=== PATIENT | male | born 1940 | race Caucasian/White ===

== ENCOUNTER → 2016-03-27 11:19 | Outpatient (CLI) | payer MEDICARE, OTHER ==
[2015-12-03 10:43] VITALS: BMI 27.4
[~2016-03-27 11:19] MED LIST: ASPIRIN325 MG PO; ATIVAN0.5 MG PO; BAYER CHEWABLE81 MG PO; BUMETANIDE0.5 MG PO; CLARITIN 10 MG10 MG PO; FISH OIL 500 MG1 CAP PO; FLOMAX0.4 MG PO; LOPRESSOR50 MG PO; NEURONTIN 100100 MG PO; NITROSTAT0.4 MG; PLAVIX75 MG PO; PRILOSEC20 MG PO; VITAMIN PO
== END | disposition home or self-care (01) ==
LOC: D.US 11:19
DX: I65.23 Occlusion and stenosis of bilateral carotid arteries (principal)

== ENCOUNTER 2016-07-19 18:12 | Observation (INO) | payer MEDICARE, OTHER ==
[~2016-07-19] VITALS: Ht 182.9 cm; Wt 91.8 kg
--- NOTE | ~2016-07-19 | OP ---
PATIENT NAME: MARA WEAVER MEDICAL RECORD: [id number] :38 LOCATION:[facility] ADMISSION DATE:07/19/16 SURGEON: SARITA LAW M.D. DATE OF OPERATION: 07/20/2016 PROCEDURES PERFORMED: 1. Selective coronary angiography. 2. Left heart catheterization with ventriculogram. 3. Bypass angiography. 4. Left internal mammary injection. INDICATION: A 76-year-old gentleman status post stent in the right coronary presents with recurrent angina. EQUIPMENT USED: Diagnostic 5-Brazilian JL4, AR modified catheter, mammary catheter, pigtail catheter. TECHNIQUE: A 5-Brazilian sheath was inserted in retrograde fashion in the right common femoral artery. Next, selective coronary angiography was performed in standard views 5-Brazilian JL4 and ____ right. Left heart catheterization was performed using pigtail catheter. Bypass angiography was performed using the AR1 catheter. The internal mammary was selected with internal mammary catheter. CORONARY ANATOMY: 1. Left main: Left main trunk has an ostial 70% stenosis. 2. LAD: This vessel is 100% occluded in mid segment. There is competitive flow seen in the mid segment from the mammary artery. 3. Circumflex: This vessel is moderate in caliber. The first lateral branch has competitive flow to ____ as well. 4. Right coronary: This vessel is moderate in caliber and dominant. The proximal mid vessel has been stented. The stents are widely patent. There is no evidence of restenosis. 5. Saphenous vein graft to the circumflex: This graft is widely patent throughout its course. 6. Left internal mammary artery to LAD: This graft is widely patent throughout its course. 7. Left ventricle: Left ventricle is normal in size and function. No wall motion abnormalities are seen. Ejection fraction is 50%. IMPRESSION: 1. Severe viejas coronary artery disease. 2. Patent bypass grafts to the left anterior descending and circumflex. 3. Widely patent stents in the right coronary artery without evidence of restenosis. RECOMMENDATIONS: At this point, we will continue with medical management. I suspect his pain is noncardiac in origin. TRANSINT:[id number] Voice Confirmation ID: [id number] DOCUMENT ID: [id number] OPERATIVE REPORT [id number] MARA WEAVER SARITA LAW M.D. CC: [id number] DICTATION DATE: 07/20/16 1141 OPTICIAN MANAGER: 07/20/16 2151 DIS IN 07/20/16 [facility] [address] [place] [address]
--- NOTE | ~2016-07-19 | HEMODYNAMI ---
PATIENT:MARA WEAVER MEDICAL RECORD: [id number] : 36 LOCATION:[facility] ADMISSION DATE: 07/19/16 Generatedon:07/20/201611:39 Patient name: MARA WEAVER Patient #: [id number] : 1940 Date of study: 07/20/2016 Page: Of Hemodynamic Procedure Report Patient Data Patient Demographics Procedure consent was obtained First Name: MARA Gender: Male Last Name: MEG : 1940 Middle Initial: L Age: 76 year(s) Patient #: [id number] Race: Ethnicity: or SSN: [id number] Additional ID: [id number] Contact details Address: [address] State: [place] City: [place] Zip code: [address] Past Medical History Allergies Allergen Reaction Date Comments Reported Other allergy 12/03/2015 Statins, valium Other allergy 07/20/2016 rosuvastatin calcium, statins, valium, lipitor, simvastatin Admission Admission Data Admission Date: 07/19/2016 Admission Time: 21:46 Room #: [id number] Lab Results Lab Result Date: 07/19/2016 Lab Result Time: 0:00 Biochemistry Name Units Result Min Max BUN mg/dl 17 --(---*)-- 7 18 Creatinine mg/dl 1.1 --(--*-)-- 0.6 1.3 CBC Name Units Result Min Max Hemoglobin g/dl 14.3 --(*---)-- 13.5 17.5 Procedure Procedure Types Cath Procedure Diagnostic Procedure LHC LHC w/Coronaries w/Grafts Miscellaneous Procedures Moderate Sedation up to 15 minutes Procedure Description Procedure Date Procedure Date: 07/20/2016 Procedure Start Time: 11:13 Procedure End Time: 11:37 Procedure Staff Name Function Boston Watkins MD Performing Physician Shy Conroy RT Scrub Maurizio Ernandez RN Nurse Taryn Hernandez RT Monitor Procedure Data Cath Procedure Fluoroscopy Diagnostic fluoroscopy Total fluoroscopy Time: 5.4 time: 5.4 min min Diagnostic fluoroscopy Total fluoroscopy dose: 886 dose: 886 mGy mGy Contrast Material Contrast Material Type Amount (ml) Isovue 300 98 Entry Location Entry Primary Successful Side Size Upsize Upsize Entry Closure Succes sful Closure Location (Fr) 1 (Fr) 2 (Fr) Remarks Device Remarks Femoral Right 5 Fr Exoseal artery Estimated blood loss: 10 ml Diagnostic catheters Device Type Used For End Catheter Placement Cordis 5Fr JL 4.0 Procedure Catheter (MP) Diagnostic Infinity 5Fr Procedure AR 2 MOD catheter Diagnostic Infinity 5Fr Procedure IM catheter Cordis 5Fr Pigtail LV Angiography Catheter (MP) Procedure Complications No complications Procedure Medications Medication Administration Route Dosage Oxygen NC 2 l/min Lidocaine 2% added to field 20 Heparin Flush Bag added to field 2 bags (1000units/500ml NS) 0.9% NaCl I.V. 100 ml/hr Fentanyl I.V. 50 mcg Fentanyl I.V. 50 mcg Fentanyl I.V. 50 mcg Fentanyl I.V. 50 mcg Hemodynamics Rest HGB: 14.3 (g/dl) Heart Rate: 90 (bpm) Pressure Samples Time Site Value (mmHg) Purpose Heart Use Rate(bpm) 11:33 LV 158/-5,21 Snapshot 90 11:33 LV 160/-6,21 Snapshot 90 11:34 AO 158/78(112) Pullback 93 11:34 LV 165/-2,22 Pullback 93 Gradients Valve Time Site 1 Site 2 Mean SEP/DFP Peak To Heart Use (mmHg) (sec/min) Peak Rate (mmHg) (bpm) Aortic 11:34 LV AO 20 10 7 93 165/-2,22 158/78(112) Calculations Valve P-P Mean Valve Index Valve Source Name Gradient Area Flow (cm2) Aortic 7 20 7 20 Snapshots Pre Cath Intra NCS Post Cath Vital Signs Time Heart Resp SPO2 NIBP (mmHg) Rhythm Pain Sedation Rate (ipm) (%) Status Level (bpm) 10:58:21 88 16 99 164/88(125) NSR 0 (11) 10(A) , No pain 11:02:46 88 18 98 160/87(115) NSR 0 (11) 10(A) , No pain 11:07:08 81 17 99 155/75(119) NSR 0 (11) 10(A) , No pain 11:11:24 86 16 97 140/77(107) NSR 0 (11) 10(A) , No pain 11:15:42 85 14 98 147/78(113) NSR 0 (11) 10(A) , No pain 11:19:56 89 17 96 134/82(103) NSR 0 (11) 10(A) , No pain 11:24:12 90 15 99 135/77(107) NSR 0 (11) 10(A) , No pain 11:28:28 89 15 99 139/78(115) NSR 0 (11) 10(A) , No pain 11:32:42 92 16 99 144/77(104) NSR 0 (11) 10(A) , No pain 11:37:00 92 15 99 138/76(95) NSR 0 (11) 10(A) , No pain Medications Time Medication Route Dose Verified Delivered Reason Notes Effe ctiveness by by 11:05:42 Oxygen NC 2 Boston Buffie used for l/min Roland Ernandez RN procedure 11:05:49 Lidocaine 2% added 20ml Boston Boston for local to vial Roland Watkins MD anesthetic field 11:05:55 Heparin Flush added 2 Boston Botson used for Bag to bags Roland Watkins MD procedure (1000units/500ml field NS) 11:06:04 0.9% NaCl I.V. 100 Boston Buffie Per ml/hr Roland Ernandez RN physician 11:12:35 Fentanyl I.V. 50 Boston Buffie for oniel Ernandez RN sedation 11:15:36 Fentanyl I.V. 50 Boston Buffie for oniel Ernandez RN sedation 11:18:36 Fentanyl I.V. 50 Boston Buffie for oniel Ernandez RN sedation 11:23:30 Fentanyl I.V. 50 Boston Buffie for oniel Ernandez RN sedation Procedure Log Time Note 10:38:02 Informed consent obtained and on chart 10:38:16 Diagnostic Cath Status : Elective 10:39:08 Maurizio Ernandez RN sent for patient. Start room use. 10:39:09 Time tracking: Regular hours 10:39:13 Plan of Care:Hemodynamics will remain stable., Cardiac rhythm will remain stable., Comfort level will be maintained., Respiratory function will remain adequate., Patient/ family verbilizes understanding of procedure., Procedure tolerated without complication., Recovers from procedure without complications.. 10:50:26 Patient received from Med/Surg to CCL 2 Alert and oriented. Tansferred to table in Supine position. 10:50:27 Warm blankets applied, and georgiana hugger turned on for patient comfort. 10:50:27 Correct patient and procedure confirmed by team. 10:50:28 ECG and BP/O2 sat monitors applied to patient. 10:57:08 Vital chart was started 10:57:31 H&P Date Dictated: 07/20/2016 Within 30 days and on chart.. 10:57:37 Pre-procedure instructions explained to patient. 10:57:40 Family in patients room. 10:57:42 Patient NPO since Midnight. 10:58:30 Patient allergic to Other allergyrosuvastatin calcium, statins, valium, lipitor, simvastatin 10:58:33 Is the patient allergic to Iodine/contrast media? No. 10:58:36 Is patient on blood thinner?Yes 10:58:39 ACC The patient was administered the following blood thiners within the last 24 hours: ACCAspirin 10:58:41 Patient diabetic? No. 10:58:46 Snore? Yes 10:58:49 Sleep apnea? No 10:58:51 Deviated septum? No 10:58:52 Opens mouth fully? Yes 10:58:54 Sticks out tongue? Yes 10:59:08 Dentures? Yes in tight 10:59:17 Patient pain scale 0/10 ?. 10:59:24 IV patent on arrival in left hand with 0.9% NaCl at O. 11:01:00 Lab Result : BUN 17 mg/dl 11:01:00 Lab Result : Hemoglobin 14.3 g/dl 11:01:00 Lab Result : Creatinine 1.1 mg/dl 11:01:05 Lab results completed and on chart. 11:01:11 Right groin area was prepped with chlora-prep and draped in sterile fashion 11:01:13 Sharps counted by scrub and verified by R.N. 11:01:14 Physician paged 11:05:42 Oxygen 2 l/min NC was administered by Maurizio Ernandez RN; used for procedure; 11:05:49 Lidocaine 2% 20ml vial added to field was administered by Boston Watkins MD; for local anesthetic; 11::55 Heparin Flush Bag (1000units/500ml NS) 2 bags added to field was administered by Bostno Watkins MD; used for procedure; 11:06:04 0.9% NaCl 100 ml/hr I.V. was administered by Maurizio Ernandez RN; Per physician; 11::55 Physician arrived 11::55 --------ALL STOP TIME OUT------ 11:11:56 Final Timeout: patient, procedure, and site verified with staff and physician. All members of the team are in agreement. 11:11:59 Right groin site verified by team. 11:12:04 Sedation plan: IV Moderate Sedation Versed, Fentanyl 11:12:35 Fentanyl 50 mcg I.V. was administered by Maurizio Ernandez RN; for sedation; 11:13:45 Physical assessment completed. ASA score P 2 - A patient with mild systemic disease as per Boston Watkins MD. 11:13:50 Procedure started. 11:13:50 Full Disclosure recording started 11:13:53 Local anesthetic to right femoral artery with Lidocaine 2% by Boston Watkins MD.INITIAL ACCESS ONLY 11:14:00 Use device set Femoral Dx 11:14:01 Acist Syringe opened to sterile field. 11:14:02 Bag Decanter opened to sterile field. 11:14:03 Medline Cath Pack opened to sterile field. 11:14:03 Terumo 5Fr Callao Sheath opened to sterile field. 11:14:04 St Alcides 260cm J .035 wire opened to sterile field. 11:14:05 Acist Hand Control opened to sterile field. 11:14:06 Acist Manifold opened to sterile field. 11:14:06 Diagnostic Infinity 5Fr Multipack catheter opened to sterile field. 11:14:07 Tegaderm 4 x 4 opened to sterile field. 11:14:13 Procedure type changed to Cath procedure, Diagnostic procedure, LHC, LHC w/Coronaries w/Grafts, Miscellaneous Procedures, Moderate Sedation up to 15 minutes 11:14:25 A 5 Fr sheath was inserted into the Right Femoral artery 11:14:28 Zero performed for pressure channel P1 11:15:36 Fentanyl 50 mcg I.V. was administered by Buffie Ernandez RN; for sedation; 11:18:36 Fentanyl 50 mcg I.V. was administered by Maurizio Ernandez RN; for sedation; 11:23:28 A Cordis 5Fr JL 4.0 Catheter (MP) was advanced over the wire and used for Procedure. 11:23:30 Fentanyl 50 mcg I.V. was administered by Maurizio Ernandez RN; for sedation; 11:23:36 LCA angiography performed. 11:26:11 Catheter removed. 11:27:29 A Diagnostic Infinity 5Fr AR 2 MOD catheter was advanced over the wire and used for Procedure. 11:27:54 SVG to Circ angiography performed. 11:28:14 SVG to RCA occluded. 11:28:23 RCA angiography performed. 11:30:04 A Diagnostic Infinity 5Fr IM catheter was advanced over the wire and used for Procedure. 11:30:08 FRANCO to LAD angiography performed. 11:33:07 A Cordis 5Fr Pigtail Catheter (MP) was advanced over the wire and used for LV Angiography. 11:33:47 EF : 50 % 11:34:04 Catheter removed. 11:34:11 Cordis 5Fr Exoseal opened to sterile field. 11:34:28 Sheath removed intact; hemostasis achieved with Exoseal to the Right Femoral artery. 11:35:00 Procedure ended.(Physican Out) 11:35:18 Fluoroscopy time 05.40 minutes. 11:35:25 Fluoroscopy dose: 886 mGy 11:35:25 Flurop Dose total: 886 11:35:33 Contrast amount:Isovue 300 98ml. 11:35:34 Sharps counted by scrub and verified by R.N. 11:35:59 Insertion/operative site no bleeding no hematoma. 11:36:03 Post-op/insertion site Right Femoral artery dressed using a 4 x 4 and Tegaderm. 11:36:13 Post right femoral artery:stable 11:36:14 Post Procedure Pulses reassessed and unchanged 11:36:18 Post-procedure physical assessment completed. ASA score P 2 - A patient with mild systemic disease as per Boston Watkins MD. 11:36:21 Post procedure rhythm: unchanged. 11:36:23 Estimated blood loss: 10 ml 11:36:24 Post procedure instruction explained to patient.Patient verbalizes understanding. 11:36:37 Procedure and supply charges have been captured, reviewed, submitted and are correct. 11:36:59 Procedure Complication : No complications 11:37:05 Vital chart was stopped 11:37:06 See physician's report for complete and final results. 11:37:08 Report given to Pre/Post Procedure Room. 11:37:12 Patient transfered to Pre/Post Procedure Room with Bed. 11:37:14 Procedure ended. 11:37:14 Full Disclosure recording stopped 11:37:17 End room use (Document Last) Device Usage Item Name Manufacture Quantity Catalog Hospital Part Current Minimal Lo t# / Number Charge Number Stock Stock Serial# Code Acist Acist 1 [id number] [id number] 577485 267711 20 Syringe [employer] Inc Bag Microtek 1 2002S 105392 64827 865504 5 Decanter Medical Inc. Medline Cardinal 1 [id number] 877582 04106 555328 5 Cath Pack Health Terumo 5Fr Terumo 1 [id number] 745431 699587 405891 [address] Al[facility] St Alcides 1 593746 406455 856505 856715 30 260cm J .035 wire Acist Hand Acist 1 60222 425864 126325 610309 5 Control Medical Systems Inc Acist Acist 1 31152 981702 903854 849662 5 Manifold Medical Systems Inc Diagnostic Cardinal 1 [id number] 661227 03074 885253 30 Infinity Health 5Fr Multipack catheter Tegaderm 4 3M 1 1626W 068940 136505 155824 5 x 4 Cordis 5Fr Cardinal 1 292478 5 JL 4.0 Health Catheter (MP) Diagnostic Cardinal 1 [id number] 388219 616156 291258 20 Infinity Health 5Fr AR 2 MOD catheter Diagnostic Cardinal 1 [id number] 237921 684267 606396 5 Infinity Health 5Fr IM catheter Cordis 5Fr Cardinal 1 501608 5 Pigtail Health Catheter (MP) Cordis 5Fr Cardinal 1 EX500 586784 219938 735419 10 European Batteries Signature Audit [place] Stage Time Signature Unsigned Intra-Procedure 07/20/2016 Taryn Hernandez 11:39:30 AM RT(R) Signatures Monitor : Taryn Hernandez Signature : RT Date : Time : [place] [address] [place] [address]
[2016-07-19 19:06] LABS: BASOPHILS 0.4 % (0-2); EOSINOPHILS 2.1 % (0-7); HEMATOCRIT 41.3 % (42.0-54.0); HEMOGLOBIN 14.3 g/dL (13.5-17.5); IMMATURE GRANULOCYTES 0.2 % (0-5); LYMPHOCYTES 35.4 % (15-50); MCH 33.1 pg (26.0-34.0); MCHC 34.6 g/dL (31.0-37.0); MCV 95.6 fL (80.0-100.0); MEAN PLATELET VOLUME 9.6 fL (7.4-10.4); NEUTROPHILS 51.9 % (40-80); PLATELET COUNT 143 10x3/uL (130-400); RBC 4.32 10x6/uL (4.20-6.10); RDW 12.6 % (11.5-14.5); WBC 5.6 10x3/uL (4.8-10.8)
[2016-07-19 19:28] LABS: ALKALINE PHOSPHATASE 72 U/L (46-116); ALT (SGPT) 23 U/L (10-68); BILIRUBIN - TOTAL 0.45 mg/dL (0.2-1.3); CALC OSMOLALITY 280 mosm/kg (275-300); CALCIUM 9.1 mg/dL (8.5-10.1); CARBON DIOXIDE 29.1 mmol/L (21.0-32.0); CHLORIDE - SERUM 103 mmol/L (98-107); CREATININE - SERUM 1.1 mg/dL (0.6-1.3); GLUCOSE 104 mg/dL (74-106); POTASSIUM - SERUM 3.6 mmol/L (3.5-5.1); PROTEIN - SERUM 7.9 g/dL (6.4-8.2); SODIUM 140 mmol/L (136-145); UREA NITROGEN 17 mg/dL (7-18); eGFR NON AFRICAN AMERICAN 69 mL/min (90-120)
[2016-07-19 19:39] LABS: CHOL - HDL RATIO 5.9 ratio (2.3-4.9); CHOLESTEROL, TOTAL 208 mg/dL (0-200); CKMB 0.7 U/L (0.0-3.6); CREATINE KINASE 74 UL (21-232); HDL CHOLESTEROL 35 mg/dL (32-96); LDL CHOLESTEROL 135 mg/dL (0-100); LDL-HDL RATIO 3.9 ratio (1.5-3.5); TRIGLYCERIDE 193 mg/dL (30-200); TROPONIN-I < 0.017 ng/mL (0.000-0.060)
--- NOTE | 2016-07-19 23:12 | NUR ---
CALLED TO RESERVE TELE MONITOR
[2016-07-20 00:45] VITALS: BP 115/58; Ht 182.9 cm; Wt 91.8 kg
[2016-07-20] MEDS ORDERED: ZANTAC150 MG PO (00:56)
[2016-07-20] MEDS ORDERED: TYLENOL PM1 TAB PO (00:57)
[2016-07-20] MEDS ORDERED: ARICEPT5 MG PO (00:58)
[2016-07-20] MEDS ORDERED: SEROQUEL50 MG PO (01:00)
[2016-07-20 01:47] LABS: CREATINE KINASE 62 UL (21-232)
[2016-07-20 01:51] LABS: TROPONIN-I < 0.017 ng/mL (0.000-0.060)
[2016-07-20 04:00] VITALS: BP 139/70
--- NOTE | 2016-07-20 07:40 | NUR ---
PT AOX4 RESP EVEN AND NONLABORED PT DENIES NEEDS AT THIS TIME IV TO LEFT AC PATENT AND INTACT AT THIS TIME SRX2 BED AT LOWEST SETTING CALL LIGHT WITHIN REACH WILL CONTINUE TO MONITOR
[2016-07-20 07:49] LABS: CKMB 0.5 U/L (0.0-3.6); CREATINE KINASE 65 UL (21-232)
[2016-07-20 07:54] LABS: TROPONIN-I < 0.017 ng/mL (0.000-0.060)
[2016-07-20 08:08] VITALS: BP 110/68
[2016-07-20 08:54] LABS: CALC OSMOLALITY 278 mosm/kg (275-300); CALCIUM 8.8 mg/dL (8.5-10.1); CARBON DIOXIDE 24.1 mmol/L (21.0-32.0); CHLORIDE - SERUM 104 mmol/L (98-107); GLUCOSE 103 mg/dL (74-106); POTASSIUM - SERUM 4.2 mmol/L (3.5-5.1); SODIUM 139 mmol/L (136-145); UREA NITROGEN 16 mg/dL (7-18); eGFR NON AFRICAN AMERICAN 77 mL/min (90-120)
[2016-07-20 09:31] LABS: BASOPHILS 0.4 % (0-2); EOSINOPHILS 1.3 % (0-7); HEMATOCRIT 41.1 % (42.0-54.0); IMMATURE GRANULOCYTES 0.2 % (0-5); LYMPHOCYTES 21.3 % (15-50); MCH 32.8 pg (26.0-34.0); MCHC 34.1 g/dL (31.0-37.0); MCV 96.3 fL (80.0-100.0); MEAN PLATELET VOLUME 10.3 fL (7.4-10.4); NEUTROPHILS 68.8 % (40-80); PLATELET COUNT 134 10x3/uL (130-400); RBC 4.27 10x6/uL (4.20-6.10); RDW 12.5 % (11.5-14.5); WBC 5.3 10x3/uL (4.8-10.8)
--- NOTE | 2016-07-20 12:00 | NUR ---
RIGHT GROIN CDI, NO HEMATOMA OR BLEEDING NOTED AT SITE, SOFT TO TOUCH, AT SIDE.
--- NOTE | 2016-07-20 12:30 | NUR ---
NO CHANGES IN GROIN, FAMILY AT SIDE
--- NOTE | 2016-07-20 14:20 | NUR ---
IV D'C WITH CATH TIP INTACT, RIGHT GROIN CDI, NO HEMATOMA OR BLEEDING NOTED, SOFT TO TOUCH. WRITTEN AND VERBAL INSTRUCTIONS GIVEN TO PT AND . VERBAL UNDERSTANDING NOTED. D'C HOME WITH
== END 2016-07-20 14:20 | disposition home or self-care (01) ==
LOC: D.ER 18:12 → D.MS 21:46 → OBSVTIME 21:46 → D.CLR 07-20 13:17
PROVIDERS: Emergency Medicine; ADMIT Internal Medicine Cardiovascular Disease
DX: R07.89 Other chest pain (principal); I25.10 Atherosclerotic heart disease of native coronary artery without angina pectoris; Z95.5 Presence of coronary angioplasty implant and graft; I10 Essential (primary) hypertension; E78.5 Hyperlipidemia, unspecified; Z87.891 Personal history of nicotine dependence

== ENCOUNTER → 2016-10-13 11:29 | Outpatient (CLI) | payer MEDICARE, OTHER ==
[2016-07-20 00:45] VITALS: BMI 27.4
[~2016-10-13 11:29] MED LIST changes: +ARICEPT5 MG PO; +SEROQUEL50 MG PO; +TYLENOL PM1 TAB PO; +ZANTAC150 MG PO
== END | disposition home or self-care (01) ==
LOC: D.CT 11:29
DX: I72.2 Aneurysm of renal artery (principal)

== ENCOUNTER → 2017-02-23 10:49 | Outpatient (CLI) | payer MEDICARE, OTHER ==
[2016-07-20 00:45] VITALS: BMI 27.4
[~2017-02-23 10:49] MED LIST changes: +AZELASTINE137 MCG/0. NASAL; +FLUTICASONE PRO16 GM NASAL
== END | disposition home or self-care (01) ==
LOC: D.CT 10:49
DX: I73.9 Peripheral vascular disease, unspecified (principal); I70.219 Atherosclerosis of native arteries of extremities with intermittent claudication, unspecified extremity

== ENCOUNTER 2017-03-02 07:28 | Outpatient (CLI) | payer MEDICARE, OTHER ==
[~2017-03-02] VITALS: Ht 182.9 cm; Wt 92.3 kg
--- NOTE | ~2017-03-02 | HEMODYNAMI ---
PATIENT:MARA WEAVER MEDICAL RECORD: [id number] : 36 LOCATION:[facility] ADMISSION DATE: 03/02/17 Generatedon:03/02/20179:52 Patient name: MARA WEAVER Patient #: [id number] : 1940 Date of study: 03/02/2017 Page: Of Hemodynamic Procedure Report Patient Data Patient Demographics Procedure consent was obtained First Name: MARA Gender: Male Last Name: MEG : 1940 [facility] Initial: L Age: 76 year(s) Patient #: [id number] Race: Ethnicity: or SSN: [id number] Additional ID: [id number] Contact details Address: [facility] [address] State: [place] City: [place] Zip code: [address] Past Medical History Allergies Allergen Reaction Date Comments Reported Other allergy 12/03/2015 Statins, valium Other allergy 07/20/2016 rosuvastatin calcium, statins, valium, lipitor, simvastatin Admission Admission Data Admission Date: 03/02/2017 Admission Time: 7:28 Procedure Procedure Types Cath Procedure Peripheral Cath Diagnostic Procedure Cath Peripheral Yrcnx-Ppppmpp-Jyc-Off Procedure Description Procedure Date Procedure Date: 03/02/2017 Procedure Start Time: 9:39 Procedure End Time: 9:51 Procedure Staff Name Function Kael Carbajal MD Performing Physician Cm Schaffer RT Monitor Jackie Barragan RT Scrub Roberto Harrington RN Nurse Procedure Data Cath Procedure Fluoroscopy Diagnostic fluoroscopy Total fluoroscopy Time: 1.5 time: 1.5 min min Diagnostic fluoroscopy Total fluoroscopy dose: 221 dose: 221 mGy mGy Contrast Material Contrast Material Type Amount (ml) Isovue 300 74 Entry Location Entry Primary Successful Side Size Upsize Upsize Entry Closure Succes sful Closure Location (Fr) 1 (Fr) 2 (Fr) Remarks Device Remarks Femoral Left 5 Fr Exoseal artery Estimated blood loss: 10 ml Diagnostic catheters Device Type Used For End Catheter Placement DIAGNOSTIC UF 5Fr Procedure catheter ([id number]) Procedure Complications No complications Procedure Medications Medication Administration Route Dosage Oxygen NC 2 l/min Heparin Flush Bag added to field 2 bags (1000units/500ml NS) 0.9% NaCl I.V. 100 ml/hr Fentanyl I.V. 50 mcg Fentanyl I.V. 50 mcg Fentanyl I.V. 50 mcg Fentanyl I.V. 50 mcg Hemodynamics Rest Heart Rate: 87 (bpm) Snapshots Pre Cath Intra NCS Post Cath Vital Signs Time Heart Resp SPO2 etCO2 NIBP (mmHg) Rhythm Pain Sedation Rate (ipm) (%) (mmHg) Status Level (bpm) 9:23:11 92 18 98 0 160/78(120) NSR 0 (11) 10(A) , No pain 9:28:25 89 17 99 36.2 151/73(121) NSR 0 (11) 10(A) , No pain 9:33:07 83 16 95 38.4 143/77(105) NSR 0 (11) 10(A) , No pain 9:38:17 85 16 92 34.6 137/71(111) NSR 0 (11) 9(A) , No pain 9:42:51 99 17 97 38.5 126/71(100) NSR 0 (11) 9(A) , No pain 9:47:28 87 17 98 27.9 132/82(102) NSR 0 (11) 9(A) , No pain 9:50:09 95 13 98 24.1 125/72(113) NSR 0 (11) 9(A) , No pain Medications Time Medication Route Dose Verified Delivered Reason Notes Effect iveness by by 9:25:04 Oxygen NC 2 Kael Mejia Per l/min Solomon Harrington RN physician 9:25:13 Heparin Flush added 2 Kael Mejia used for Bag to bags Solomon Harrington RN procedure (1000units/500ml field NS) 9:25:21 0.9% NaCl I.V. 100 Kael Mejia Per ml/hr Solomon Harrington RN physician 9:33:12 Fentanyl I.V. 50 Kael Mejia for mcg Solomon Harrington RN sedation 9:36:01 Fentanyl I.V. 50 Kael Mejia for mcg Solomon Harrington RN sedation 9:38:47 Fentanyl I.V. 50 Kael dueñas [facility] Solomon Harrington RN sedation 9:43:52 Fentanyl I.V. 50 Kael Mejia for [facility] Solomon Harrington RN sedation Procedure Log Time Note 9:00:26 Jackie Barragan RT(R) sent for patient. Start room use. 9:06:27 Time tracking: Regular hours 9:06:33 Plan of Care:Hemodynamics will remain stable., Cardiac rhythm will remain stable., Comfort level will be maintained., Respiratory function will remain adequate., Patient/ family verbilizes understanding of procedure., Procedure tolerated without complication., Recovers from procedure without complications.. 9:14:58 Patient received from Pre/Post Procedure Room to CCL 1 Alert and oriented. Tansferred to table in Supine position. 9:15:00 Warm blankets applied, and georgiana hugger turned on for patient comfort. 9:15:00 Correct patient and procedure confirmed by team. 9:15:01 Signed procedure consent form obtained from patient. 9:15:02 ECG and BP/O2 sat monitors applied to patient. 9:21:25 Procedure type changed to Cath procedure, Peripheral Cath Diagnostic Procedure, Cath Peripheral, Tlibh-Tnmpahu-Dvt-Off 9:21:32 Vital chart was started 9:25:04 Oxygen 2 l/min NC was administered by Roberto Harrington RN; Per physician; 9:25:13 Heparin Flush Bag (1000units/500ml NS) 2 bags added to field was administered by Roberto Harrington RN; used for procedure; 9:25:21 0.9% NaCl 100 ml/hr I.V. was administered by Roberto Harrington RN; Per physician; 9:26:12 Baseline sample Acquired. 9:26:18 Rhythm: sinus rhythm 9:26:20 Full Disclosure recording started 9:26:33 H&P Date Dictated: 03/01/2017 Within 30 days and on chart., H&P Addendum completed by physician on day of procedure. (MUST COMPLETE FOR ALL OUTPATIENTS). 9:26:55 Pre-procedure instructions explained to patient. 9:26:55 Pre-op teaching completed and patient verbalized understanding. 9:26:58 Family in patients room. 9:27:00 Patient NPO since Midnight. 9:27:01 Is the patient allergic to Iodine/contrast media? No. 9:27:06 Is patient on blood thinner?No 9:30:40 Patient diabetic? No. 9:30:42 Previous problem with sedation/anesthesia? No ? 9:30:44 Snore? Yes 9:30:45 Sleep apnea? Yes 9:30:46 Deviated septum? No 9:30:46 Opens mouth fully? Yes 9:30:47 Sticks out tongue? Yes 9:30:53 Airway obstruction? Yes Asthma 9:31:06 Dentures? Yes IN 9:31:11 Pre procedure: right dorsailis pedis pulse Doppler 9:31:15 Pre procedure: left dorsailis pedis pulse Doppler 9:31:17 Patient pain scale 0/10 ?. 9:31:23 IV patent on arrival in left forearm with 0.9% NaCl at [facility]. 9:31:25 Lab results completed and on chart. 9:31:28 Bilateral groins area was prepped with chlora-prep and draped in sterile fashion 9:31:29 Alarms reviewed by R. N. 9:31:30 Sharps counted by scrub and verified by R.N. 9:31:39 Use device set Femoral Dx 9:31:43 Tegaderm 4 x 4 ([id number]) opened to sterile field. 9:31:45 ACIST Hand Control (61304) opened to sterile field. 9:31:45 ACIST Manifold (60731) opened to sterile field. 9:31:47 ACIST Syringe (81243) opened to sterile field. 9:31:47 Bag Decanter (2002S) opened to sterile field. 9:31:47 Medline Cath Pack ([id number]) opened to sterile field. 9:31:52 SHEATH 5FR Stuart (CRC392) opened to sterile field. 9:31:53 DIAGNOSTIC WIRE .035 260cm J wire (646516) opened to sterile field. 9:31:54 PERCUTANEOUS ENTRY 19GA needle opened to sterile field. 9:32:45 --------ALL STOP TIME OUT------ 9:32:46 Final Timeout: patient, procedure, and site verified with staff and physician. All members of the team are in agreement. 9:32:48 Bilateral groins site verified by team. 9:32:53 Physical assessment completed. ASA score P 2 - A patient with mild systemic disease as per Kael Carbajal MD. 9:32:57 Sedation plan: IV Moderate Sedation Medication:Fentanyl 9:33:12 Fentanyl 50 mcg I.V. was administered by Roberto Harrington RN; for sedation; 9:36:01 Fentanyl 50 mcg I.V. was administered by Roberto Harrington RN; for sedation; 9:38:47 Fentanyl 50 mcg I.V. was administered by Roberto Harrington RN; for sedation; 9:39:01 Procedure started. 9:39:05 Local anesthetic to left femerol artery with Lidocaine 2% by Kael Carbajal MD.INITIAL ACCESS ONLY 9:39:55 A 5 Fr sheath was inserted into the Left Femoral artery 9:40:42 A DIAGNOSTIC UF 5Fr catheter ([id number]) was advanced over the wire and used for Procedure. 9:41:30 Abdominal Aortagram was performed. 9:41:43 Left leg runoff performed. 9:41:45 Right leg runoff performed. 9:42:24 GLIDE WIRE Super Stiff Angled 260cm ([id number]) opened to sterile field. 9:43:36 Bruno wire advanced. 9:43:43 TORQUE DEVICE PLASTIC .038 ( TD01) opened to sterile field. 9:43:52 Fentanyl 50 mcg I.V. was administered by Roberto Harrington RN; for sedation; 9:45:27 Catheter advanced around the horn for better angiogram of the right leg. 9:45:29 Right leg runoff performed. 9:45:47 Catheter removed. 9:45:50 EXOSEAL 5Fr (EX500) opened to sterile field. 9:46:03 Sheath removed intact; hemostasis achieved with Exoseal to the Left Femoral artery. 9:46:31 Procedure ended.(Physican Out) 9:47:06 Fluoroscopy time 01.50 minutes. 9:47:10 Flurop Dose total: 221 9:47:10 Fluoroscopy dose: 221 mGy 9:47:15 Contrast amount:Isovue 300 74ml. 9:47:17 Sharps counted by scrub and verified by R.N. 9:47:19 Insertion/operative site no bleeding no hematoma. 9:47:24 Post-op/insertion site Left Femoral artery dressed using a 4 x 4 and Tegaderm. 9:47:25 Post Procedure Pulses reassessed and unchanged 9:47:28 Post-procedure physical assessment completed. ASA score P 2 - A patient with mild systemic disease as per Kael Carbajal MD. 9:47:30 Post procedure rhythm: unchanged. 9:47:33 Estimated blood loss: 10 ml 9:47:35 Post procedure instruction explained to patient.Patient verbalizes understanding. 9:47:36 Patient needs reinforcement of post procedure teaching. 9:48:58 Procedure and supply charges have been captured, reviewed, submitted and are correct. 9:49:00 Procedure Complication : No complications 9:51:08 Vital chart was stopped 9:51:10 See physician's report for complete and final results. 9:51:16 Report given to Pre/Post Procedure Room. 9:51:21 Patient transfered to Pre/Post Procedure Room with Stretcher. 9:51:23 Procedure ended. 9:51:23 Full Disclosure recording stopped 9:52:24 End room use (Document Last) Device Usage Item Name Manufacture Quantity Catalog Hospital Part Current Minimal Lot# / Number Charge Number Stock Stock Serial# Code Tegaderm 4 x 3M 1 1626W [id number] 169228 153769 5 4 (1626W) ACIST Hand Acist 1 91031 964304 382811 898470 5 Control Medical (45463) Systems Inc ACIST Acist 1 92065 925237 313924 799859 5 Manifold Medical (85742) Systems Inc ACIST Acist 1 27020 873689 998699 451677 20 Syringe Medical (02024) Systems Inc Bag Decanter Microtek 1 2002S 208842 06877 380059 5 (2002S) Medical Inc. Medline Cath Cardinal 1 [id number] 330076 68241 107520 5 Pack Health ([id number]) SHEATH 5FR Terumo 1 PIL782 019087 664890 478225 40 Stuart (XLQ134) DIAGNOSTIC [facility] Alcides 1 865271 843195 912752 989900 30 WIRE .035 260cm J wire (217006) PERCUTANEOUS Cook Medical 1 A07053 631151 346241 5 ENTRY 19GA needle DIAGNOSTIC Cardinal 1 [id number] 728168 667769 037274 10 UF 5Fr Health catheter ([id number]) GLIDE WIRE Terumo 1 YB3699 612375 440180 263912 5 Super Stiff Angled 260cm (XM6356) TORQUE Bolivar 1 TD01 494853 526451 954271 5 DEVICE Scientific PLASTIC .038 ( TD01) EXOSEAL 5Fr Cardinal 1 EX500 801075 172868 763271 10 (EX500) Health Signature Audit Wayan Stage Time Signature Unsigned Intra-Procedure 03/02/2017 Cm Schaffer 9:52:45 AM RT(R) Signatures Monitor : Cm Schaffer RT Signature : Date : Time : [address] [place] [address]
--- NOTE | ~2017-03-02 | OP ---
PATIENT NAME: MARA WEAVER MEDICAL RECORD: [id number] :36 LOCATION:[facility] ADMISSION DATE: SURGEON: NIDA ALICEA MD DATE OF OPERATION: 03/02/2017 PROCEDURES: 1. Aortofemoral runoff. 2. Abdominal aortography. INDICATION: Leg pain compatible with claudication. CT angio suggestive of below the knee disease bilaterally. PROCEDURE IN DETAIL: After informed consent was obtained and after detailed explanation of risks, benefits as well as alternative therapies, the patient elected to proceed with angiogram and aortofemoral runoff. The left femoral area was prepped and draped in normal sterile fashion. Left femoral artery was cannulated via modified Seldinger technique with placement of 5-Wallisian sheath. FINDINGS: Abdominal aortography was performed. The catheter was pulled down for aortofemoral runoff. Abdominal aortography reveals no significant abdominal aortic disease. No dissection or aneurysm formation. No renal artery stenosis. RIGHT LEG: A. Iliac: The common internal and external iliacs smooth walled with no evidence of peripheral vascular disease. B. Femoral system: The common superficial and deep femoral have mild irregularities, but no flow-limiting stenosis. C. Popliteal and infrapopliteal vessels are widely patent. There is good 3-vessel runoff to the foot with no significant disease. LEFT LEG: A. Iliac: The common internal and external iliacs smooth walled with no evidence of peripheral vascular disease. B. Femoral system: The common superficial and deep femoral have mild irregularities, but no flow-limiting stenosis. C. Popliteal and infrapopliteal vessels are widely patent. There is good 3-vessel runoff to the foot with no significant disease. OVERALL IMPRESSION: No significant peripheral vascular disease is present. CT angio was inaccurate and leg pain is non-arterial vascular in etiology. TRANSINT:[id number] Voice Confirmation ID: [id number] DOCUMENT ID: [id number] NIDA ALICEA MD at 1025 CC: ROSAURA ZAMAN MD [id number] DICTATION DATE: 03/02/17 0950 ENVIRONMENTAL MARKETING REPRESENTATIVE: 03/02/17 1316 DEP CLI 03/02/17 [address] [place] [address]
[~2017-03-02 07:28] MED LIST changes: -AZELASTINE137 MCG/0. NASAL; -FLUTICASONE PRO16 GM NASAL
[2017-03-02] MEDS ORDERED: FLUTICASONE PRO16 GM NASAL (07:52)
[2017-03-02] MEDS ORDERED: AZELASTINE137 MCG/0. NASAL (07:53)
[2017-03-02 08:10] VITALS: BP 157/73; Ht 182.9 cm; Wt 92.3 kg
[2017-03-02 08:39] LABS: ANION GAP 13.7 mmol/L (8-16); CALCIUM 8.6 mg/dL (8.5-10.1); CARBON DIOXIDE 26.7 mmol/L (21.0-32.0); CREATININE - SERUM 1.1 mg/dL (0.6-1.3); POTASSIUM - SERUM 4.4 mmol/L (3.5-5.1)
[2017-03-02 08:56] LABS: BASOPHILS 0.2 % (0-2); EOSINOPHILS 2.4 % (0-7); HEMATOCRIT 44.6 % (42.0-54.0); HEMOGLOBIN 15.2 g/dL (13.5-17.5); IMMATURE GRANULOCYTES 0.2 % (0-5); LYMPHOCYTES 31.8 % (15-50); MCHC 34.1 g/dL (31.0-37.0); MCV 93.9 fL (80.0-100.0); MEAN PLATELET VOLUME 9.9 fL (7.4-10.4); MONOCYTES 8.8 % (2-11); NEUTROPHILS 56.6 % (40-80); PLATELET COUNT 146 10x3/uL (130-400); RBC 4.75 10x6/uL (4.20-6.10); RDW 12.9 % (11.5-14.5); WBC 4.9 10x3/uL (4.8-10.8)
== END 2017-03-02 12:18 | disposition home or self-care (01) ==
LOC: D.CATH 07:28
PROVIDERS: Internal Medicine Interventional Cardiology
DX: I70.219 Atherosclerosis of native arteries of extremities with intermittent claudication, unspecified extremity (principal); I25.10 Atherosclerotic heart disease of native coronary artery without angina pectoris; I10 Essential (primary) hypertension; E78.5 Hyperlipidemia, unspecified; Z95.1 Presence of aortocoronary bypass graft; Z01.812 Encounter for preprocedural laboratory examination

== ENCOUNTER → 2017-06-11 13:30 | Outpatient (CLI) | payer MEDICARE, OTHER ==
[2017-03-02 08:10] VITALS: BMI 27.6
[~2017-06-11 13:30] MED LIST changes: +AZELASTINE137 MCG/0. NASAL; +FLUTICASONE PRO16 GM NASAL
== END | disposition home or self-care (01) ==
LOC: D.US 13:30
DX: I65.23 Occlusion and stenosis of bilateral carotid arteries (principal)

== ENCOUNTER 2017-08-23 10:12 | Emergency (ER) | payer MEDICARE, OTHER ==
[~2017-08-23] VITALS: Ht 182.9 cm; Wt 93.6 kg
[2017-08-23 10:16] VITALS: Ht 182.9 cm; Wt 93.6 kg
[2017-08-23 10:58] LABS: BASOPHILS 0.2 % (0-2); EOSINOPHILS 3.7 % (0-7); HEMATOCRIT 40.2 % (42.0-54.0); HEMOGLOBIN 14.1 g/dL (13.5-17.5); LYMPHOCYTES 35.6 % (15-50); MCH 32.8 pg (26.0-34.0); MCHC 35.1 g/dL (31.0-37.0); MCV 93.5 fL (80.0-100.0); MEAN PLATELET VOLUME 9.8 fL (7.4-10.4); MONOCYTES 10.4 % (2-11); NEUTROPHILS 50.1 % (40-80); PLATELET COUNT 127 10x3/uL (130-400); RDW 12.6 % (11.5-14.5); WBC 4.6 10x3/uL (4.8-10.8)
[2017-08-23 11:18] LABS: ALBUMIN 3.5 g/dL (3.4-5.0); ALKALINE PHOSPHATASE 67 U/L (46-116); ALT (SGPT) 16 U/L (10-68); BILIRUBIN - TOTAL 0.63 mg/dL (0.2-1.3); CALC OSMOLALITY 273 mosm/kg (275-300); CALCIUM 8.5 mg/dL (8.5-10.1); CARBON DIOXIDE 27.6 mmol/L (21.0-32.0); CHLORIDE - SERUM 105 mmol/L (98-107); GLUCOSE 102 mg/dL (74-106); POTASSIUM - SERUM 4.1 mmol/L (3.5-5.1); PROTEIN - SERUM 7.3 g/dL (6.4-8.2); SODIUM 137 mmol/L (136-145); UREA NITROGEN 12 mg/dL (7-18); eGFR NON AFRICAN AMERICAN 76 mL/min (90-120)
[2017-08-23 12:32] LABS: ERYTHROCYTE SEDIMENTATION RATE 22 mm/hr (0-20)
[2017-08-23 13:54] VITALS: BP 124/62
== END 2017-08-23 13:54 | disposition home or self-care (01) ==
LOC: D.ER 10:12
PROVIDERS: Emergency Medicine
DX: R51 Headache (principal); W19.XXXA Unspecified fall, initial encounter; Y93.89 Activity, other specified; Y92.019 Unspecified place in single-family (private) house as the place of occurrence of the external cause; H53.8 Other visual disturbances; K21.9 Gastro-esophageal reflux disease without esophagitis; Z85.828 Personal history of other malignant neoplasm of skin

== ENCOUNTER → 2018-03-21 10:57 | Outpatient (CLI) | payer MEDICARE, OTHER ==
[2017-08-23 10:16] VITALS: BMI 28.0
== END | disposition home or self-care (01) ==
LOC: D.CT 10:57
DX: I72.2 Aneurysm of renal artery (principal); I10 Essential (primary) hypertension

== ENCOUNTER → 2019-01-23 08:24 | Outpatient (CLI) | payer MEDICARE, OTHER ==
[2017-08-23 10:16] VITALS: BMI 28.0
== END | disposition home or self-care (01) ==
LOC: D.US 08:24
PROVIDERS: ATTEND Internal Medicine Cardiovascular Disease
DX: I65.23 Occlusion and stenosis of bilateral carotid arteries (principal)